=== PATIENT | male | born 1975 | race Caucasian/White ===

== ENCOUNTER 2018-05-04 14:26 | Emergency (ER) | payer SELFPAY ==
[~2018-05-04] VITALS: Ht 172.7 cm; Wt 100.0 kg
[2018-05-04 14:34] VITALS: Ht 172.7 cm; Wt 100.0 kg
[2018-05-04] MEDS ORDERED: KEFLEX500 MG PO (15:19)
[2018-05-04] MEDS ORDERED: BACTRIM DS1 TAB PO (15:19)
[2018-05-04 15:47] VITALS: BP 140/80
== END 2018-05-04 15:48 | disposition home or self-care (01) ==
LOC: D.ER 14:26
DX: L03.114 Cellulitis of left upper limb (principal); F17.200 Nicotine dependence, unspecified, uncomplicated